=== PATIENT | male | born 1995 | race Caucasian/White ===

== ENCOUNTER 2020-06-26 17:09 | Emergency (ER) | payer MEDICAID ==
[2020-06-26] MEDS ORDERED: Bacitracin Oint 1 GM U/D Packet TOP ONE (17:23)
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
--- NOTE | 2020-06-28 11:18 | CR ---
Fingers Third Digit Rt F7 CLINICAL HISTORY: Injury FINDINGS: There is mild soft tissue swelling at the tips of the second third digits. No fracture or osseous lesion identified. IMPRESSION: No fracture or dislocation
== END 2020-06-26 18:15 | disposition home or self-care (01) ==
LOC: JP.ED 17:09
DX: S61.212A Laceration without foreign body of right middle finger without damage to nail, initial encounter (principal); Z88.2 Allergy status to sulfonamides; W23.0XXA Caught, crushed, jammed, or pinched between moving objects, initial encounter
CPT/HCPCS: 12001; 73140-26-F7; 73140-F7; 99282; 99283-25

== ENCOUNTER 2020-11-04 11:19 | Emergency (ER) | payer MEDICAID ==
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
--- NOTE | 2020-11-04 12:43 | CR ---
Hand Comp Min 3V Rt CLINICAL HISTORY: Injury FINDINGS: There is a comminuted fracture of the distal aspect of the fourth metacarpal with some palmar displacement. There is articular surface involvement. Impression: Fracture fourth metacarpal
== END 2020-11-04 13:02 | disposition home or self-care (01) ==
LOC: JP.ED 11:19
DX: S62.394A Other fracture of fourth metacarpal bone, right hand, initial encounter for closed fracture (principal); Z88.2 Allergy status to sulfonamides; W22.8XXA Striking against or struck by other objects, initial encounter
CPT/HCPCS: 29125; 73130-26-RT; 73130-RT; 99283; 99283-25

== ENCOUNTER 2021-06-05 15:35 | Emergency (ER) | payer MEDICAID ==
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
== END 2021-06-05 17:15 | disposition home or self-care (01) ==
LOC: JP.ED 15:35
DX: S61.212A Laceration without foreign body of right middle finger without damage to nail, initial encounter (principal); Z88.2 Allergy status to sulfonamides; W26.8XXA Contact with other sharp object(s), not elsewhere classified, initial encounter; Y99.0 Civilian activity done for income or pay
CPT/HCPCS: 99282

== ENCOUNTER 2021-09-13 08:33 | Emergency (ER) | payer OTHER, MEDICAID ==
[2021-09-13] MEDS ORDERED: Sodium Chloride 0.9% 10 ML Syringe FLUSH PRN (08:41)
[2021-09-13] MEDS ORDERED: Diphtheria,Pertussis(Acell),Tetanus Vaccine 0.5 ML Syringe IM ONE (08:41)
[2021-09-13] MEDS ORDERED: HYDROmorphone 1 MG/ML Syringe IVPUSH ONE (08:41)
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
[2021-09-13] MEDS ORDERED: Ketorolac 30 MG/ML SDV IVPUSH ONE (09:24)
[2021-09-13] MEDS ORDERED: HYDROmorphone 0.5 MG/0.5 ML Syringe IVPUSH ONE (09:25)
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
[2021-09-13] MEDS ORDERED: Bacitracin Oint 1 GM U/D Packet TOP ONE (09:55)
== END 2021-09-13 10:47 | disposition home or self-care (01) ==
LOC: JP.ED 08:33
DX: S42.022A Displaced fracture of shaft of left clavicle, initial encounter for closed fracture (principal); Z88.2 Allergy status to sulfonamides; Z23 Encounter for immunization; V49.40XA Driver injured in collision with unspecified motor vehicles in traffic accident, initial encounter; Y92.410 Unspecified street and highway as the place of occurrence of the external cause
CPT/HCPCS: 72040; 73030; 90471; 90715; 96374; 96375; 96376; 99283; J1170; J1885

== ENCOUNTER 2023-08-15 15:30 | Emergency (ER) | payer SELFPAY | END 2023-08-15 18:24 | disposition home or self-care (01) | LOC: JP.ED 15:30 | DX: S06.0X0A Concussion without loss of consciousness, initial encounter (principal); S16.1XXA Strain of muscle, fascia and tendon at neck level, initial encounter; Z88.2 Allergy status to sulfonamides; W10.8XXA Fall (on) (from) other stairs and steps, initial encounter | CPT/HCPCS: 70450; 70450-26; 72125; 72125-26; 76377; 76377-26; 99284 ==